=== PATIENT | male | born 1950 | race Caucasian/White ===

== ENCOUNTER 2024-02-24 15:10 | Emergency (ER) | payer MEDICARE ==
[2024-02-24 15:51] LABS: APPEARANCE,URINE SLT CLOUDY (Clear); BILIRUBIN,URINE NEGATIVE (Negative); COLOR,URINE YELLOW (Yellow); GLUCOSE,URINE 2+ (Negative); KETONES,URINE NEGATIVE (Negative); LEUKOCYTE ESTERASE,URINE 1+ (Negative); NITRITE,URINE NEGATIVE (Negative); OCCULT BLOOD,URINE TRACE-INTACT (Negative); PROTEIN,URINE 1+ (Negative)
[2024-02-24 16:04] LABS: BACTERIA,URINE MANY /hpf (FEW); SQUAMOUS EPITHELIAL CELLS,UR 0-5 /hpf (0-5); WBC,URINE 20-30 /hpf (0-5)
[2024-02-24 16:05] LABS: MUCUS,URINE FEW /hpf (FEW)
[2024-02-24 16:19] LABS: BASOPHILS PERCENT AUTO 0.3 % (0.0-1.0); EOSINOPHILS PERCENT AUTO 0.2 % (0.0-6.0); HEMATOCRIT 49.3 % (42.0-52.0); HEMOGLOBIN 16.5 gm/dl (14.0-18.0); IMMATURE GRAN ABSOLUTE AUTO 0.07 K/mm3 (0.00-0.05); IMMATURE GRAN PERCENT AUTO 0.5 % (0.0-0.4); LYMPHOCYTES ABSOLUTE AUTO 0.6 K/mm3 (1.0-4.8); MEAN CORPUSCULAR HEMOGLOBIN 31.3 pg (28.0-32.0); MEAN CORPUSCULAR HGB CONC 33.5 g/dl (32.0-36.0); MEAN CORPUSCULAR VOLUME 93.5 fl (83.0-99.0); MEAN PLATELET VOLUME 10.3 fl (9.4-12.4); MONOCYTES ABSOLUTE AUTO 1.6 K/mm3 (0.0-0.8); MONOCYTES PERCENT AUTO 10.6 % (0.0-8.0); NEUTROPHILS ABSOLUTE AUTO 12.5 K/mm3 (1.8-7.7); NEUTROPHILS PERCENT AUTO 84.4 % (41.0-71.0); PLATELET COUNT,PLT 212 K/mm3 (150-400); RED BLOOD CELL COUNT 5.27 M/mm3 (4.52-5.90); WHITE BLOOD CELL COUNT,WBC 14.84 K/mm3 (3.9-11.3)
[2024-02-24] MEDS: Sodium Chloride 0.9% 1,000 ML IV ONE (16:27)
[2024-02-24] MEDS: Acetaminophen 325 MG Tab PO ONE (16:27)
[2024-02-24] MEDS: Tamsulosin 0.4 MG Cap.ER PO ONE (16:28)
[2024-02-24 16:40] LABS: INR 1.12; PROTHROMBIN TIME 11.8 SECONDS (9.7-12.0)
[2024-02-24 16:42] LABS: PTT,PARTIAL THROMBOPLSTIN TIME 29.9 SECONDS (21.7-31.4)
[2024-02-24 16:44] LABS: A/G RATIO 1.2 (1-2); ANION GAP 17.1 (5-15); BILIRUBIN TOTAL 1.3 mg/dL (0.2-1.0); BUN/CREATININE RATIO 14.6 (14-18); C-REACTIVE PROTEIN 8.76 mg/dL (<0.30); CALCIUM 8.7 mg/dL (8.5-10.1); CREATININE 1.3 mg/dL (0.7-1.3); EST CRCL DRUG DOSING (CG) 51.47 mL/min; POTASSIUM,K 3.1 mEq/L (3.5-5.1); PROTEIN TOTAL,TP 7.3 g/dl (6.4-8.2)
[2024-02-24 16:54] LABS: LACTIC ACID 1.6 mmol/L (0.4-2.0)
[2024-02-24] MEDS ORDERED: Potassium Chloride 20 MEQ Tab.ER PO ONE (17:27)
== END 2024-02-24 17:40 | disposition home or self-care (01) ==
LOC: JD.ED 15:10
DX: N30.01 Acute cystitis with hematuria (principal); I10 Essential (primary) hypertension; E11.9 Type 2 diabetes mellitus without complications; Z88.2 Allergy status to sulfonamides
CPT/HCPCS: 36415; 80053; 81001; 83605; 85025; 85610; 85730; 86140; 87040; 87086; 87154; 96360; 99284-25; A9270-GY; J7030

== ENCOUNTER 2024-02-26 10:27 | Inpatient (IN) | payer MEDICARE, OTHER ==
[2024-02-26] MEDS ORDERED: cefTRIAXone 2 GM in Sodium Chloride 0.9% 100 ML IV ONE (10:51)
[2024-02-26] MEDS: cefTRIAXone 2 GM Vial IVPUSH ONE (11:20)
[2024-02-26] MEDS: Ketorolac 30 MG/ML SDV IVPUSH ONE (11:20)
[2024-02-26] MEDS: Sodium Chloride 0.9% 1,000 ML IV ONE ×3 (11:21→14:19)
[2024-02-26] MEDS: Sodium Chloride 0.9% 10 ML Syringe FLUSH PRN (11:21)
[2024-02-26 11:33] LABS: HEMATOCRIT 41.9 % (42.0-52.0); MEAN CORPUSCULAR HEMOGLOBIN 30.8 pg (28.0-32.0); MEAN CORPUSCULAR HGB CONC 34.6 g/dl (32.0-36.0); MEAN PLATELET VOLUME 11.1 fl (9.4-12.4); PLATELET COUNT,PLT 161 K/mm3 (150-400); RED BLOOD CELL COUNT 4.71 M/mm3 (4.52-5.90); WHITE BLOOD CELL COUNT,WBC 17.62 K/mm3 (3.9-11.3)
[2024-02-26 11:41] LABS: INR 1.11; PROTHROMBIN TIME 11.7 SECONDS (9.7-12.0)
[2024-02-26 11:49] LABS: A/G RATIO 0.8 (1-2); ALANINE AMINOTRANSFERASE,ALT 34 U/L (16-63); ALBUMIN 2.9 g/dl (3.4-5.0); ALKALINE PHOSPHATASE 44 U/L (46-116); ANION GAP 16.9 (5-15); ASPARTATE AMNIOTRANSFERASE,AST 31 U/L (15-37); BILIRUBIN TOTAL 0.8 mg/dL (0.2-1.0); BLOOD UREA NITROGEN,BUN 33 mg/dL (7-18); BUN/CREATININE RATIO 18.3 (14-18); CALCIUM 8.7 mg/dL (8.5-10.1); CARBON DIOXIDE,CO2 22 mEq/L (21-32); CHLORIDE,CL 95 mEq/L (98-107); CREATININE 1.8 mg/dL (0.7-1.3); ESTIMATED GFR 39 mL/min (>60); GLUCOSE RANDOM 182 mg/dL (70-99); POTASSIUM,K 2.9 mEq/L (3.5-5.1); PROTEIN TOTAL,TP 6.7 g/dl (6.4-8.2); SODIUM,NA 131 mEq/L (136-145)
[2024-02-26 11:56] LABS: HEMOGLOBIN 14.5 gm/dl (14.0-18.0)
[2024-02-26 12:03] LABS: C-REACTIVE PROTEIN > 25.00 mg/dL (<0.30)
[2024-02-26] MEDS: Potassium Chloride 20 MEQ Tab.ER PO ONE (14:20)
[2024-02-26] MEDS: Potassium Chloride 10 MEQ in Premix Bag 1 BAG IV SCH (14:20)
[2024-02-26 14:48] LABS: BAND PERCENT MAN 3 % (0-10); BASOPHILS PERCENT MAN 0 (0.2-1.2); EOSINOPHILS PERCENT MAN 1 % (0.8-7.0); LYMPHOCYTES % ATYPICAL MANUAL 0 %; LYMPHOCYTES PERCENT MAN 4 % (20-40); MONOCYTES PERCENT MAN 6 % (2-10); PLATELET COUNT ESTIMATE ADEQUATE; TOXIC GRANULATION FEW
[2024-02-26] MEDS ORDERED: Morphine 2 MG/ML SYRINGE IVPUSH PRN (14:52)
[2024-02-26] MEDS ORDERED: Sennosides/Docusate Sodium 50-8.6 MG Tab PO PRN (14:52)
[2024-02-26] MEDS ORDERED: Naloxone 0.4 MG/ML SDV IVPUSH PRN (14:52)
[2024-02-26] MEDS ORDERED: Piperacillin/Tazobactam 4.5 GM in Sodium Chloride 0.9% 100 ML IV SCH (15:00)
[2024-02-26] MEDS ORDERED: 50% Dextrose in Water 50 ML Syringe IVPUSH PRN (15:07)
[2024-02-26 15:25] LABS: APPEARANCE,URINE CLEAR (Clear); BILIRUBIN,URINE NEGATIVE (Negative); COLOR,URINE YELLOW (Yellow); GLUCOSE,URINE 2+ (Negative); KETONES,URINE NEGATIVE (Negative); LEUKOCYTE ESTERASE,URINE NEGATIVE (Negative); NITRITE,URINE NEGATIVE (Negative); OCCULT BLOOD,URINE 2+ (Negative); PROTEIN,URINE 2+ (Negative); UROBILINOGEN,URINE 0.2 (0.2-1.0)
[2024-02-26] MEDS ORDERED: hydrOXYzine HCl 25 MG Tab PO PRN (15:34)
[2024-02-26] MEDS: Tamsulosin 0.4 MG Cap.ER PO ONE (16:14)
[2024-02-26] MEDS: Heparin Sodium 5,000 Units/ML Vial SUBCUT SCH (16:14)
[2024-02-26] MEDS: Ondansetron 4 MG/2 ML SDV IV PRN (16:14)
[2024-02-26] MEDS: Piperacillin/Tazobactam 4.5 GM Vial IV SCH (16:14)
[2024-02-26] MEDS: Insulin Lispro 100 Unit/ML 3 ML KwikPen SUBCUT SCH (16:21)
[2024-02-26] MEDS: NS + KCl 20mEq/L 1,000 ML IV SCH (16:24)
[2024-02-26] MEDS: oxyCODONE 5 MG Tab PO PRN (17:55)
[2024-02-26] MEDS: Famotidine 20 MG/2 ML SDV IVPUSH SCH (20:11)
[2024-02-26] MEDS: buPROPion 100 MG Tab.SR PO SCH (20:11)
[2024-02-26] MEDS: Gabapentin 300 MG Cap PO SCH (20:11)
[2024-02-27 00:16] LABS: BACTERIA,URINE MODERATE /hpf (FEW); MUCUS,URINE FEW /hpf (FEW); SQUAMOUS EPITHELIAL CELLS,UR 0-5 /hpf (0-5)
[2024-02-27] MEDS: Acetaminophen 325 MG Tab PO PRN (03:08)
[2024-02-27 05:21] LABS: A/G RATIO 0.6 (1-2); ALANINE AMINOTRANSFERASE,ALT 36 U/L (16-63); ALBUMIN 2.2 g/dl (3.4-5.0); ALKALINE PHOSPHATASE 38 U/L (46-116); ANION GAP 15.2 (5-15); ASPARTATE AMNIOTRANSFERASE,AST 33 U/L (15-37); BILIRUBIN TOTAL 0.6 mg/dL (0.2-1.0); BLOOD UREA NITROGEN,BUN 33 mg/dL (7-18); BUN/CREATININE RATIO 20.6 (14-18); CALCIUM 7.9 mg/dL (8.5-10.1); CARBON DIOXIDE,CO2 21 mEq/L (21-32); CHLORIDE,CL 102 mEq/L (98-107); CREATININE 1.6 mg/dL (0.7-1.3); EST CRCL DRUG DOSING (CG) 41.82 mL/min; ESTIMATED GFR 45 mL/min (>60); GLUCOSE RANDOM 111 mg/dL (70-99); MAGNESIUM 1.9 mg/dL (1.8-2.4); PHOSPHORUS 2.2 mg/dL (2.6-4.7); POTASSIUM,K 3.2 mEq/L (3.5-5.1); PROTEIN TOTAL,TP 5.8 g/dl (6.4-8.2); SODIUM,NA 135 mEq/L (136-145)
[2024-02-27 05:25] LABS: BASOPHILS PERCENT AUTO 0.2 % (0.0-1.0); HEMATOCRIT 39.7 % (42.0-52.0); HEMOGLOBIN 13.7 gm/dl (14.0-18.0); IMMATURE GRAN ABSOLUTE AUTO 0.13 K/mm3 (0.00-0.05); IMMATURE GRAN PERCENT AUTO 0.9 % (0.0-0.4); LYMPHOCYTES ABSOLUTE AUTO 0.4 K/mm3 (1.0-4.8); LYMPHOCYTES PERCENT AUTO 2.7 % (24.0-44.0); MEAN CORPUSCULAR HEMOGLOBIN 31.3 pg (28.0-32.0); MEAN CORPUSCULAR HGB CONC 34.5 g/dl (32.0-36.0); MEAN CORPUSCULAR VOLUME 90.6 fl (83.0-99.0); MEAN PLATELET VOLUME 11.4 fl (9.4-12.4); MONOCYTES ABSOLUTE AUTO 1.3 K/mm3 (0.0-0.8); MONOCYTES PERCENT AUTO 8.8 % (0.0-8.0); NEUTROPHILS ABSOLUTE AUTO 12.8 K/mm3 (1.8-7.7); NEUTROPHILS PERCENT AUTO 87.4 % (41.0-71.0); PLATELET COUNT,PLT 153 K/mm3 (150-400); RED BLOOD CELL COUNT 4.38 M/mm3 (4.52-5.90); WHITE BLOOD CELL COUNT,WBC 14.58 K/mm3 (3.9-11.3)
[2024-02-27 05:32] LABS: C-REACTIVE PROTEIN > 25.00 mg/dL (<0.30)
[2024-02-27] MEDS ORDERED: Enoxaparin 40 MG/0.4 ML Syringe SUBCUT SCH (09:00)
[2024-02-27] MEDS: Tamsulosin 0.4 MG Cap.ER PO SCH (09:15)
[2024-02-27] MEDS ORDERED: Tamsulosin 0.4 MG Cap.ER PO SCH (10:00)
[2024-02-27] MEDS: Sodium Chloride 0.9% 1,000 ML IV SCH (14:13)
[2024-02-28 05:36] LABS: A/G RATIO 0.5 (1-2); ALANINE AMINOTRANSFERASE,ALT 42 U/L (16-63); ALKALINE PHOSPHATASE 46 U/L (46-116); ANION GAP 16.8 (5-15); ASPARTATE AMNIOTRANSFERASE,AST 43 U/L (15-37); BILIRUBIN TOTAL 0.8 mg/dL (0.2-1.0); BLOOD UREA NITROGEN,BUN 27 mg/dL (7-18); CALCIUM 7.9 mg/dL (8.5-10.1); CARBON DIOXIDE,CO2 21 mEq/L (21-32); CHLORIDE,CL 101 mEq/L (98-107); CREATININE 1.5 mg/dL (0.7-1.3); EST CRCL DRUG DOSING (CG) 44.61 mL/min; ESTIMATED GFR 49 mL/min (>60); GLUCOSE RANDOM 101 mg/dL (70-99); POTASSIUM,K 2.8 mEq/L (3.5-5.1); PROTEIN TOTAL,TP 5.8 g/dl (6.4-8.2); SODIUM,NA 136 mEq/L (136-145)
[2024-02-28 05:40] LABS: BASOPHILS PERCENT AUTO 0.3 % (0.0-1.0); EOSINOPHILS PERCENT AUTO 0.1 % (0.0-6.0); HEMATOCRIT 38.3 % (42.0-52.0); HEMOGLOBIN 13.3 gm/dl (14.0-18.0); IMMATURE GRAN ABSOLUTE AUTO 0.09 K/mm3 (0.00-0.05); IMMATURE GRAN PERCENT AUTO 0.7 % (0.0-0.4); LYMPHOCYTES ABSOLUTE AUTO 0.4 K/mm3 (1.0-4.8); LYMPHOCYTES PERCENT AUTO 2.9 % (24.0-44.0); MEAN CORPUSCULAR HEMOGLOBIN 30.6 pg (28.0-32.0); MEAN CORPUSCULAR HGB CONC 34.7 g/dl (32.0-36.0); MEAN PLATELET VOLUME 10.7 fl (9.4-12.4); MONOCYTES ABSOLUTE AUTO 1.2 K/mm3 (0.0-0.8); MONOCYTES PERCENT AUTO 9.6 % (0.0-8.0); NEUTROPHILS ABSOLUTE AUTO 11.2 K/mm3 (1.8-7.7); NEUTROPHILS PERCENT AUTO 86.4 % (41.0-71.0); PLATELET COUNT,PLT 184 K/mm3 (150-400); RED BLOOD CELL COUNT 4.35 M/mm3 (4.52-5.90); WHITE BLOOD CELL COUNT,WBC 12.97 K/mm3 (3.9-11.3)
[2024-02-28 05:54] LABS: C-REACTIVE PROTEIN > 25.00 mg/dL (<0.30)
[2024-02-28] MEDS: Potassium Chloride 10 MEQ Tab.ER PO SCH (08:07)
[2024-02-28] MEDS: Potassium Chloride 20 MEQ Tab.ER PO SCH (09:07)
[2024-02-28] MEDS: Pantoprazole 40 MG Tab.CR PO SCH (12:43)
[2024-02-28] MEDS: Melatonin 3 MG Tab PO PRN (20:01)
[2024-02-28] MEDS: Chlorthalidone 25 MG Tab PO SCH (20:01)
[2024-02-29 05:33] LABS: BASOPHILS PERCENT AUTO 0.3 % (0.0-1.0); EOSINOPHILS PERCENT AUTO 0.3 % (0.0-6.0); HEMATOCRIT 39.3 % (42.0-52.0); IMMATURE GRAN ABSOLUTE AUTO 0.26 K/mm3 (0.00-0.05); IMMATURE GRAN PERCENT AUTO 2.3 % (0.0-0.4); LYMPHOCYTES ABSOLUTE AUTO 0.6 K/mm3 (1.0-4.8); LYMPHOCYTES PERCENT AUTO 4.8 % (24.0-44.0); MEAN CORPUSCULAR HEMOGLOBIN 30.9 pg (28.0-32.0); MEAN CORPUSCULAR HGB CONC 33.1 g/dl (32.0-36.0); MEAN PLATELET VOLUME 10.5 fl (9.4-12.4); MONOCYTES ABSOLUTE AUTO 1.3 K/mm3 (0.0-0.8); MONOCYTES PERCENT AUTO 11.1 % (0.0-8.0); NEUTROPHILS ABSOLUTE AUTO 9.3 K/mm3 (1.8-7.7); NEUTROPHILS PERCENT AUTO 81.2 % (41.0-71.0); PLATELET COUNT,PLT 199 K/mm3 (150-400); RED BLOOD CELL COUNT 4.21 M/mm3 (4.52-5.90); WHITE BLOOD CELL COUNT,WBC 11.47 K/mm3 (3.9-11.3)
[2024-02-29 05:40] LABS: MEAN CORPUSCULAR VOLUME 93.3 fl (83.0-99.0)
[2024-02-29 05:54] LABS: A/G RATIO 0.5 (1-2); ALANINE AMINOTRANSFERASE,ALT 46 U/L (16-63); ALBUMIN 1.8 g/dl (3.4-5.0); ALKALINE PHOSPHATASE 48 U/L (46-116); ANION GAP 13.2 (5-15); ASPARTATE AMNIOTRANSFERASE,AST 42 U/L (15-37); BILIRUBIN TOTAL 0.6 mg/dL (0.2-1.0); BLOOD UREA NITROGEN,BUN 26 mg/dL (7-18); BUN/CREATININE RATIO 16.3 (14-18); CALCIUM 8.1 mg/dL (8.5-10.1); CARBON DIOXIDE,CO2 25 mEq/L (21-32); CHLORIDE,CL 103 mEq/L (98-107); CREATININE 1.6 mg/dL (0.7-1.3); EST CRCL DRUG DOSING (CG) 41.82 mL/min; ESTIMATED GFR 45 mL/min (>60); GLUCOSE RANDOM 90 mg/dL (70-99); POTASSIUM,K 3.2 mEq/L (3.5-5.1); PROTEIN TOTAL,TP 5.7 g/dl (6.4-8.2); SODIUM,NA 138 mEq/L (136-145)
[2024-02-29 06:19] LABS: C-REACTIVE PROTEIN > 25.00 mg/dL (<0.30)
[2024-02-29] MEDS: Empagliflozin 25 MG Tab PO SCH (09:25)
[2024-02-29] MEDS: Enoxaparin 40 MG/0.4 ML Syringe SUBCUT SCH (09:30)
[2024-02-29] MEDS ORDERED: Pantoprazole 40 MG Tab.CR PO SCH (12:04)
[2024-02-29] MEDS: Potassium Chloride 20 MEQ Tab.ER PO ONE (12:32)
[2024-02-29] MEDS: Baclofen 10 MG Tab PO PRN (12:33)
[2024-03-01 05:58] LABS: BASOPHILS ABSOLUTE AUTO 0.1 K/mm3 (0.0-0.2); BASOPHILS PERCENT AUTO 0.5 % (0.0-1.0); EOSINOPHILS ABSOLUTE AUTO 0.2 K/mm3 (0.0-0.4); EOSINOPHILS PERCENT AUTO 1.5 % (0.0-6.0); HEMATOCRIT 41.9 % (42.0-52.0); HEMOGLOBIN 14.4 gm/dl (14.0-18.0); IMMATURE GRAN ABSOLUTE AUTO 0.52 K/mm3 (0.00-0.05); IMMATURE GRAN PERCENT AUTO 5.1 % (0.0-0.4); LYMPHOCYTES ABSOLUTE AUTO 0.6 K/mm3 (1.0-4.8); LYMPHOCYTES PERCENT AUTO 6.2 % (24.0-44.0); MEAN CORPUSCULAR HEMOGLOBIN 30.4 pg (28.0-32.0); MEAN CORPUSCULAR HGB CONC 34.4 g/dl (32.0-36.0); MEAN PLATELET VOLUME 10.3 fl (9.4-12.4); MONOCYTES ABSOLUTE AUTO 1.1 K/mm3 (0.0-0.8); NEUTROPHILS ABSOLUTE AUTO 7.7 K/mm3 (1.8-7.7); PLATELET COUNT,PLT 245 K/mm3 (150-400); RED BLOOD CELL COUNT 4.73 M/mm3 (4.52-5.90); WHITE BLOOD CELL COUNT,WBC 10.18 K/mm3 (3.9-11.3)
[2024-03-01 06:00] LABS: MEAN CORPUSCULAR VOLUME 88.6 fl (83.0-99.0)
[2024-03-01 06:40] LABS: A/G RATIO 0.5 (1-2); ANION GAP 17.2 (5-15); BILIRUBIN TOTAL 0.8 mg/dL (0.2-1.0); BUN/CREATININE RATIO 20.8 (14-18); C-REACTIVE PROTEIN 22.23 mg/dL (<0.30); CALCIUM 8.8 mg/dL (8.5-10.1); CREATININE 1.3 mg/dL (0.7-1.3); EST CRCL DRUG DOSING (CG) 51.47 mL/min; POTASSIUM,K 3.2 mEq/L (3.5-5.1); PROTEIN TOTAL,TP 6.4 g/dl (6.4-8.2)
[2024-03-01 07:40] LABS: NEUTROPHILS PERCENT AUTO 75.7 % (41.0-71.0); SLIDE REVIEW ABNORMAL SMEAR
[2024-03-01] MEDS: Potassium Chloride 20 MEQ Tab.ER PO ONE (08:20)
[2024-03-01] MEDS: Calcium Carbonate 500 MG Tab.Chew PO PRN (09:10)
[2024-03-02] MEDS: Diclofenac Sodium 1% Gel 100 GM Tube TOP PRN (09:01)
[2024-03-02 09:20] LABS: BASOPHILS ABSOLUTE AUTO 0.1 K/mm3 (0.0-0.2); BASOPHILS PERCENT AUTO 0.4 % (0.0-1.0); EOSINOPHILS ABSOLUTE AUTO 0.3 K/mm3 (0.0-0.4); EOSINOPHILS PERCENT AUTO 2.9 % (0.0-6.0); HEMATOCRIT 45.4 % (42.0-52.0); HEMOGLOBIN 15.3 gm/dl (14.0-18.0); IMMATURE GRAN ABSOLUTE AUTO 0.57 K/mm3 (0.00-0.05); IMMATURE GRAN PERCENT AUTO 5.1 % (0.0-0.4); LYMPHOCYTES ABSOLUTE AUTO 0.7 K/mm3 (1.0-4.8); LYMPHOCYTES PERCENT AUTO 6.2 % (24.0-44.0); MEAN CORPUSCULAR HEMOGLOBIN 30.8 pg (28.0-32.0); MEAN CORPUSCULAR HGB CONC 33.7 g/dl (32.0-36.0); MEAN CORPUSCULAR VOLUME 91.3 fl (83.0-99.0); MEAN PLATELET VOLUME 9.9 fl (9.4-12.4); MONOCYTES ABSOLUTE AUTO 0.8 K/mm3 (0.0-0.8); MONOCYTES PERCENT AUTO 6.9 % (0.0-8.0); NEUTROPHILS ABSOLUTE AUTO 8.8 K/mm3 (1.8-7.7); NEUTROPHILS PERCENT AUTO 78.5 % (41.0-71.0); PLATELET COUNT,PLT 289 K/mm3 (150-400); RED BLOOD CELL COUNT 4.97 M/mm3 (4.52-5.90); WHITE BLOOD CELL COUNT,WBC 11.22 K/mm3 (3.9-11.3)
[2024-03-02 09:33] LABS: ANION GAP 13.1 (5-15); BUN/CREATININE RATIO 17.1 (14-18); C-REACTIVE PROTEIN 11.73 mg/dL (<0.30); CALCIUM 8.8 mg/dL (8.5-10.1); CREATININE 1.4 mg/dL (0.7-1.3); EST CRCL DRUG DOSING (CG) 47.8 mL/min; POTASSIUM,K 3.1 mEq/L (3.5-5.1)
[2024-03-02 10:41] LABS: SLIDE REVIEW ABNORMAL SMEAR
[2024-03-02] MEDS: Potassium Chloride 20 MEQ Tab.ER PO ONE (15:07)
[2024-03-03] MEDS: Colchicine 0.6 MG Tab PO SCH (09:01)
[2024-03-03 09:50] LABS: APPEARANCE,URINE CLEAR (Clear); BILIRUBIN,URINE NEGATIVE (Negative); COLOR,URINE YELLOW (Yellow); GLUCOSE,URINE NEGATIVE (Negative); KETONES,URINE NEGATIVE (Negative); LEUKOCYTE ESTERASE,URINE NEGATIVE (Negative); NITRITE,URINE NEGATIVE (Negative); OCCULT BLOOD,URINE TRACE-INTACT (Negative); PROTEIN,URINE TRACE (Negative); UROBILINOGEN,URINE 0.2 (0.2-1.0)
[2024-03-03] MEDS: Colchicine 0.6 MG Tab PO ONE ×2 (10:30→11:18)
[2024-03-03 10:34] LABS: BACTERIA,URINE FEW /hpf (FEW); MUCUS,URINE FEW /hpf (FEW); SQUAMOUS EPITHELIAL CELLS,UR 0-5 /hpf (0-5); WBC,URINE 0-5 /hpf (0-5)
== END 2024-03-04 09:42 | disposition home or self-care (01) | DRG 871 ==
LOC: JD.ED 10:27 → JD.ICU 12:09 → JD.ED 13:51
PROVIDERS: ADMIT Student in an Organized Health Care Education/Training Program; ATTEND Family Medicine
PROC: 3E03329 Introduction of Other Anti-infective into Peripheral Vein, Percutaneous Approach (ICD-10-PCS; 2024-02-26)
PROC: 5A09357 Assistance with Respiratory Ventilation, Less than 24 Consecutive Hours, Continuous Positive Airway Pressure (ICD-10-PCS; principal; 2024-02-27)
DX: A41.9 Sepsis, unspecified organism (principal); A41.50 Gram-negative sepsis, unspecified; R65.21 Severe sepsis with septic shock; N39.0 Urinary tract infection, site not specified; E87.20 Acidosis, unspecified; E11.9 Type 2 diabetes mellitus without complications; N17.9 Acute kidney failure, unspecified; E87.1 Hypo-osmolality and hyponatremia; N41.0 Acute prostatitis; I10 Essential (primary) hypertension; H54.7 Unspecified visual loss; F15.90 Other stimulant use, unspecified, uncomplicated; N40.1 Benign prostatic hyperplasia with lower urinary tract symptoms; E87.6 Hypokalemia; F41.8 Other specified anxiety disorders; E11.65 Type 2 diabetes mellitus with hyperglycemia; M10.9 Gout, unspecified; Z88.2 Allergy status to sulfonamides; Z79.899 Other long term (current) drug therapy; Z98.890 Other specified postprocedural states
CPT/HCPCS: 36415; 51798; 71045; 71045-26; 80048; 80053; 81001; 82947; 83605; 83735; 84100; 85007; 85025; 85027; 85610; 86140; 87040; 87086; 87154; 87428-QW; 93005; 93010; 96374; 96375; 99285; 99285-25; A9270-GY; J0696; J1644; J1650; J1815; J1885; J2405; J2543; J3480; J3490; J7030